=== PATIENT | male | born 1985 | race Caucasian/White ===

== ENCOUNTER 2018-11-12 13:24 | Emergency (ER) | payer OTHER ==
[2018-11-12 13:34] VITALS: BP 139/79
--- NOTE | 2018-11-12 14:01 | EDM.PDOC ---
ED HPI GENERAL MEDICAL PROBLEM - General Chief Complaint: Chest Pain Stated Complaint: CHEST PAIN Time Seen by Provider: 11/12/18 13:50 Source of Information: Reports: Patient History Limitations: Reports: No Limitations - History of Present Illness INITIAL COMMENTS - FREE TEXT/NARRATIVE: 33-year-old male presents to the ED with a history of sudden onset of severe retrosternal chest pain fairly high up on his chest and radiating into his right anterior chest wall. 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 Pain is bad enough that it dropped him to his knees. Associated shortness of breath. Mild diaphoresis. After a period of 30-40 seconds the pain dissipated nearly completely and upon arrival at rest he has no pain. He has no cardiac history. His vital signs show O2 sats 100% on room air with respiratory rate of 16. Blood pressure is 128/76. He states he has been working out in the gym lately and has been doing flies which use weights to stretch the mid and upper pectoralis major and muscles. Onset: Today Onset Date: 11/12/18 Onset Time: 13:10 Duration: Other (Pain lasted about 30-40 seconds) Treatments NURSING CARE ATTENDANT: Reports: Other (see below) Other Treatments NURSING CARE ATTENDANT: none - Related Data Allergies Allergy/AdvReac Type Severity Reaction Status Date / Time penicillin Allergy Other Verified 05/07/15 06:57 Home Meds: Home Meds Cholecalciferol (Vitamin D3) [Vitamin D3] 5,000 unit PO DAILY 11/12/18 [History] Fish Oil/Palisade-3 Fatty Acids [Fish Oil] 2,000 mg PO DAILY 11/12/18 [History] Past Medical History Cardiovascular History: Reports: Other (See Below) Other Cardiovascular History: aortic stenosis Endocrine/Metabolic History: Reports: Obesity/BMI 30+ - Past Surgical History HEENT Surgical History: Reports: Oral Surgery, Tonsillectomy Social & Family History - Tobacco Use Smoking Status *Q: Never Smoker - Caffeine Use Caffeine Use: Reports: Coffee - Recreational Drug Use Recreational Drug Use: No - Living Situation & Occupation Living situation: Reports: Occupation: Employed ED ROS GENERAL - Review of Systems Review Of Systems: See Below Constitutional: Reports: No Symptoms HEENT: Reports: No Symptoms Respiratory: Reports: No Symptoms Cardiovascular: Reports: No Symptoms Endocrine: Reports: No Symptoms GI/Abdominal: Reports: No Symptoms : Reports: No Symptoms Musculoskeletal: Reports: No Symptoms Skin: Reports: No Symptoms Neurological: Reports: No Symptoms Psychiatric: Reports: No Symptoms Hematologic/Lymphatic: Reports: No Symptoms Immunologic: Reports: No Symptoms ED EXAM, GENERAL - Physical Exam Exam: See Below Exam Limited By: No Limitations General Appearance: Alert, WD/WN, Anxious, Mild Distress, Other (Vital signs are normal with O2 sats 100% on room air with respiratory to 20/m. Initial BP was 1 3979 but quickly came down to 10/26/77. He is afebrile) Eye Exam: Bilateral Eye: Normal Inspection Head: Atraumatic, Normocephalic Neck: Normal Inspection, Supple, Non-Tender, Full Range of Motion. No: Carotid Bruit, Lymphadenopathy (L), Lymphadenopathy (R) Respiratory/Chest: No Respiratory Distress, Lungs Clear, Normal Breath Sounds, No Accessory Muscle Use, Other (Chest wall tenderness elicited on firm palpation over the ribs to 3 and 4 midclavicular line and laterally. There is also pain over the coracoid process at the insertion site of the pectoralis minor.) Cardiovascular: Normal Peripheral Pulses, Regular Rate, Rhythm, No Edema, No Gallop, No Murmur, No Rub Peripheral Pulses: 3+: Posterior Tibial (L), Posterior Tibial (R), Dorsalis Pedis (L), Dorsalis Pedis (R) GI/Abdominal: Normal Bowel Sounds, Soft, Non-Tender, No Organomegaly, No Abnormal Bruit, No Mass, Pelvis Stable Back Exam: Normal Inspection, Full Range of Motion. No: CVA Tenderness (L), CVA Tenderness (R) Extremities: Normal Inspection, Normal Range of Motion, Non-Tender, Normal Capillary Refill Neurological: Alert, Oriented, CN II-XII Intact, Normal Cognition, Normal Gait Psychiatric: Normal Affect, Normal Mood Skin Exam: Warm, Dry, Intact, Normal Color, No Rash EKG INTERPRETATION EKG Date: 11/12/18 Time: 13:35 Rhythm: NSR Rate (Beats/Min): 67 [place]: Normal P-Wave: Present QRS: Other (There are Q waves in V1 and V2. Question artifact and V2. Etc. old anteroseptal myocardial infarction) ST-T: Other (Diffuse early repolarization pattern.) QT: Normal EKG Interpretation Comments: Abnormal ECG Course - Vital Signs Last Recorded V/S: Last Vital Signs Temp 36.6 C 11/12/18 13:33 Pulse 81 11/12/18 13:33 Resp 20 11/12/18 13:33 BP 139/79 11/12/18 13:33 Pulse Ox 100 11/12/18 13:33 - Orders/Labs/Meds Orders: Active Orders 24 hr Category Date Time Status EKG Documentation Completion [RC] ASDIRECTED Care 11/12/18 13:35 Active EKG 12 Lead [EK] Stat Ther 11/12/18 13:34 Ordered Labs: Laboratory Tests 11/12/18 11/12/18 11/12/18 Range/Units 14:08 14:08 14:08 WBC 9.09 H (4.23-9.07) K/mm3 RBC 4.99 (4.63-6.08) M/mm3 Hgb 14.8 (13.7-17.5) gm/L Hct 43.3 (40.1-51.0) % MCV 86.8 (79.0-92.2) fl MCH 29.7 (25.7-32.2) pg MCHC 34.2 (32.2-35.5) g/dl RDW Std Deviation 40.0 (35.1-43.9) fL Plt Count 219 (163-337) K/mm3 MPV 10.0 (9.4-12.3) fl Neutrophils % (Manual) 75 H (40-60) % Band Neutrophils % 0 (0-10) % Lymphocytes % (Manual) 18 L (20-40) % Atypical Lymphs % 0 % Monocytes % (Manual) 4 (2-10) % Eosinophils % (Manual) 3 (0.8-7.0) % Basophils % (Manual) 0 L (0.2-1.2) Platelet Estimate Adequate RBC Morph Comment Normal D-Dimer, Quantitative < 0.19 L (0.19-0.50) mg/L Sodium 141 (136-145) mEq/L Potassium 3.9 (3.5-5.1) mEq/L Chloride 104 (98-107) mEq/L Carbon Dioxide 27 (21-32) mEq/L Anion Gap 13.9 (5-15) BUN 15 (7-18) mg/dL Creatinine 1.4 H (0.7-1.3) mg/dL Est Cr Clr Drug Dosing 73.65 mL/min Estimated GFR (MDRD) 58 (>60) mL/min BUN/Creatinine Ratio 10.7 L (14-18) Glucose 128 H (74-106) mg/dL Calcium 8.8 (8.5-10.1) mg/dL Total Bilirubin 0.4 (0.2-1.0) mg/dL AST 33 (15-37) U/L ALT 51 (16-63) U/L Alkaline Phosphatase 60 (46-116) U/L Troponin I < 0.017 (0.00-0.056) ng/mL Total Protein 7.1 (6.4-8.2) g/dl Albumin 3.7 (3.4-5.0) g/dl Globulin 3.4 gm/dL Albumin/Globulin Ratio 1.1 (1-2) - Radiology Interpretation Free Text/Narrative:: 33-year-old male presents to the ED for evaluation of sudden onset of severe right-sided chest pain that occurred while standing talking in the workplace. Pain started on adjacent to the right parasternal area and radiated across his right upper chest through to the shoulder. Pain was severe enough that it took his breath away and dropped him to his knees like he had been stabbed. Patient states the pain only lasted about 30-40 seconds but left her with a feeling of being somewhat short of breath. The case by history that he's been recently working out at the gym in and doing some stretches known as flys which would stretch out his pectoralis major and minor muscles. Examination reveals heart to be normal blood pressure to be normal lungs are clear. Does have marked chest wall tenderness on firm palpation of the ribs right upper anterior chest to 3 and 4 particularly upper and little bit lateral to the chief medical technologist lying. This appears to be the source of his pain. Plan 1 chest 1 view chest x- ray to be done and routine labs to include a d-dimer. - Re-Assessments/Exams Free Text/Narrative Re-Assessment/Exam: 11/12/18 14:56 Labs are finally back. White count is normal at 9.09 with 75% neutrophils and no band cells reported. Hemoglobin 14.8 with hematocrit of 43.3. Platelets count is 219,000. D-dimer is less than 0.19. Sodium 141 with a potassium of 3.9. Toward one fourth bicarbonate 27. Anion gap is normal 13.9. BUN is 15 with a any slightly elevated at 1.4. Estimated GFR is 58. BUN/ creatinine ratio was 10.7. Glucose is 128. Calcium is 8.8. Liver function is normal. Troponin I is less than 0.017. Portable chest x-ray one view revealed no abnormalities particularly no sign of a pneumothorax. On reexamination he said no recurrence of pain while he's been in the ED. He's had no arrhythmias as his blood pressures down to 114/68. Will therefore be discharged to home. He will use Motrin 6 mg every 6 hours when necessary for pain relief if needed. I once again able to reproduce the pain by pushing on the ribs to 3 and 4 and over the coracoid process right anterior chest Departure - Departure Time of Disposition: 15:00 Disposition: Home, Self-Care 01 Condition: Fair Clinical Impression: Acute chest wall pain, Non-cardiac chest pain Referrals: Tasia Davis PA-C [Primary Care Provider] - Forms: ED Department Discharge Additional Instructions: Evaluation the emergency room today in regards to development of acute onset of right parasternal sharp stabbing chest pain that radiated towards your right shoulder. Examination revealed normal vital signs and clear lungs and normal heart sounds. ECG tracing did not show any signs of ischemia or abnormalities. Chest x-ray is within normal limits showing no abnormality of the ribs and no sign of pneumothorax. Labs were done and they are negative for any cardiac related illness or blood clot in the lung. Examination can reproduce the pain by pushing over the ribs to 3 and 4 and over the coracoid process of the shoulder blade where the pectoralis minor inserts. Per se your chest wall pain came on due to recent exercises usually utilizing weights--performing "flys" expect this area to remain tender for another couple of days and then he should be able to resume normal chest wall workout. May use Motrin 6 mg every 6 hours if needed for recurrence of pain. At this time it is safe for you to return to work with no restrictions. - My Orders Last 24 Hours: My Active Orders 11/12/18 13:34 EKG 12 Lead [EK] Stat 11/12/18 13:35 EKG Documentation Completion [RC] ASDIRECTED - Assessment/Plan Last 24 Hours: My Active Orders 11/12/18 13:34 EKG 12 Lead [EK] Stat 11/12/18 13:35 EKG Documentation Completion [RC] ASDIRECTED
--- NOTE | 2018-11-12 14:31 | CR ---
Chest: Portable view of the chest was obtained. Comparison: No prior chest x-ray. Heart size and mediastinum are normal. Lungs are clear. Bony structures are grossly intact. Impression: 1. Nothing acute is appreciated on portable chest x-ray. No pneumothorax is seen. Diagnostic code #1
== END 2018-11-12 15:10 | disposition home or self-care (01) ==
LOC: JD.ED 13:24
DX: R07.89 Other chest pain (principal); Z79.899 Other long term (current) drug therapy; Z88.0 Allergy status to penicillin
CPT/HCPCS: 36415; 71045; 71045-26; 80053; 84484; 85007; 85027; 85379; 93005; 99285-25